=== PATIENT | male | born 2000 | race Asian ===

== ENCOUNTER 2022-05-13 12:56 | Emergency (ER) | payer MEDICAID ==
[~2022-05-13] VITALS: Ht 175.3 cm; Wt 117.9 kg
--- NOTE | 2022-05-13 13:05 | NUR ---
BIBS W/ C/O HEADACHE X3 DAYS. TO ER BED 15.
[2022-05-13] MEDS ORDERED: SUMATRIPTAN SUCCINATE 6 MG/0.5 ML VIAL SQ ONE ×2 (13:24→13:30)
[2022-05-13] MEDS ORDERED: METOCLOPRAMIDE HCL 10 MG/2 ML VIAL ONE (13:25)
[2022-05-13] MEDS ORDERED: KETOROLAC TROMETHAMINE INJ 30 MG/ML VIAL ONE (13:25)
[2022-05-13] MEDS ORDERED: KETOROLAC TROMETHAMINE INJ 30 MG/ML VIAL IV ONE (13:30)
[2022-05-13] MEDS ORDERED: METOCLOPRAMIDE HCL 10 MG/2 ML VIAL IV ONE (13:30)
[2022-05-13] MEDS ORDERED: IV NS 0.9% 1,000 ML BAG IV ONE (13:30)
--- NOTE | 2022-05-13 13:30 | NUR ---
IV LINE ESTABLISHED.
[2022-05-13] MEDS ORDERED: PROCHLORPERAZINE EDISYLATE 10 MG/2 ML VIAL IVP ONE (14:00)
[2022-05-13] MEDS ORDERED: PROCHLORPERAZINE EDISYLATE 10 MG/2 ML VIAL ONE (14:05)
[2022-05-13] MEDS ORDERED: KETO10TA2 PO (15:00)
[2022-05-13] MEDS ORDERED: SUMA100T16 PO (15:00)
--- NOTE | 2022-05-13 15:32 | NUR ---
IV removed. Catheter intact and site benign. Pressure and 4x4 applied to site. No bleeding noted.
[2022-05-13 15:42] VITALS: BP 129/77
== END 2022-05-13 15:43 | disposition home or self-care (01) ==
LOC: ER 13:00
DX: G43.909 Migraine, unspecified, not intractable, without status migrainosus (principal); Z60.2 Problems related to living alone; Z79.899 Other long term (current) drug therapy
CPT/HCPCS: 99284; 96374; 96375; 96361; 96372; J0780; J3030; J2765; J1885; J7030 ×2